=== PATIENT | female | born 1975 | race African-American/Black ===

== ENCOUNTER 2023-06-03 12:26 | Emergency (ER) | payer OTHER ==
[~2023-06-03] VITALS: Ht 175.2 cm; Wt 122.5 kg
[2023-06-03] MEDS ORDERED: IRON325 M3 PO (13:09)
[2023-06-03] MEDS ORDERED: MELOXICAM15 MG PO (13:12)
== END 2023-06-03 13:50 | disposition home or self-care (01) ==
LOC: ED 12:26
DX: S83.91XA Sprain of unspecified site of right knee, initial encounter (principal); S83.92XA Sprain of unspecified site of left knee, initial encounter; W01.0XXA Fall on same level from slipping, tripping and stumbling without subsequent striking against object, initial encounter; Y93.89 Activity, other specified; Y92.89 Other specified places as the place of occurrence of the external cause; Y99.0 Civilian activity done for income or pay